=== PATIENT | female | born 1965 | race Caucasian/White ===

== ENCOUNTER 2016-05-16 11:49 | Emergency (ER) | payer BC ==
[2016-05-16] MEDS ORDERED: Ciprofloxacin 0.3% Ophth Soln 2.5 ML Bottle ONE (12:10)
[2016-05-16] MEDS ORDERED: Tetracaine 0.5% 2 ML Bottle ONE (12:10)
[2016-05-16 12:54] VITALS: BP 144/87
--- NOTE | 2016-05-16 15:40 | EDM.PDOC ---
ED HPI EYE COMPLAINT - General Stated Complaint: GREASE BURN TO THE EYE Time Seen by Provider: 05/16/16 11:50 Source: Reports: Patient - History of Present Illness INITIAL COMMENTS - FREE TEXT/NARRATIVE: This is a 50yo F arriving at the ER with a grease burn. Patient states the burn started when she was cooking [place] a droplet of grease hit her left eye. She states most of the grease hit her eye lid but feels some pain of the eye. She began to wash it immediately for a little while and then came to the ER. 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 ED EXAM GENERAL W FULL EYE - Physical Exam Exam: See Below Exam Limited By: No limitations General Appearance: alert, WD/WN, mild distress Eye Exam: bilateral eye: conjunctival injection, EOMI, PERRL Eyelids: bilateral: normal appearance Conjunctiva & Sclera: bilateral: injected Cornea Exam: bilateral: normal appearance Extraocular Movements: bilateral: intact Pupils: normal accommodation Pupillary Size: bilateral: 5 mm Pupillary Reaction: bilateral: brisk Anterior Chamber: bilateral: normal appearance Course - Vital Signs Last Recorded V/S: Last Vital Signs Temp 36.9 C 05/16/16 12:10 Pulse 93 05/16/16 12:10 Resp 20 05/16/16 12:10 BP 144/87 H 05/16/16 12:10 Pulse Ox 97 05/16/16 12:10 Departure - Departure Time of Disposition: 12:30 Disposition: Home, Self-Care 01 Condition: good Clinical Impression: Corneal burn Qualifiers: Encounter type: initial encounter Laterality: left Qualified Code(s): T26.12XA - Burn of cornea and conjunctival sac, left eye, initial encounter Referrals: Armando Haskins MD [Primary Care Provider] - - Problem List Review Problem List Initiated/Reviewed/Updated: Yes - Assessment/Plan Plan: Patient counseled on close monitoring for visual symptoms/changes or increased pain. Patient agrees with close monitoring and close f/u. Placed on Cipro eye drops and counseled on f/u again. Patient will f/u if symptoms persist, or worsen.
== END 2016-05-16 12:20 | disposition home or self-care (01) ==
LOC: LB.ED 11:49
DX: T26.12XA Burn of cornea and conjunctival sac, left eye, initial encounter (principal); X10.2XXA Contact with fats and cooking oils, initial encounter
CPT/HCPCS: 99283; A9270

== ENCOUNTER 2016-12-04 12:10 | Emergency (ER) | payer BC ==
[2016-12-04] MEDS ORDERED: Cyclobenzaprine 10 MG Tab ONE (12:30)
[2016-12-04 13:04] VITALS: BP 136/85
--- NOTE | 2016-12-04 14:21 | ER ---
HPI: A 51-year-old lady here with complaints of mid back pain on the left side. This has been bothering her for about 3 days. She denies any falls or injuries. She has not been sick. She is not running a fever. She denies any problems with nausea, diarrhea, or constipation. She further denies any urinary symptoms such as dysuria or hematuria. 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 OBJECTIVE: GENERAL APPEARANCE: The patient is awake and alert, no obvious distress. VITAL SIGNS: Reviewed as listed. Examining the patient's back reveals skin is intact. Palpation of the lower left side just lateral to the paraspinal muscles involving the lower T-spine and upper L-spine reveals muscle tightness and tenderness. There is no obvious swelling or discoloration. There is some guarding with palpation of this area. ABDOMEN: Soft and nontender. SKIN: Otherwise warm and dry. DIAGNOSIS: Muscle strain involving the patient's midback area, left side. TREATMENT PLAN: Flexeril 10 mg t.i.d. If she becomes too drowsy during the day, she can take 5 mg during the day but make sure to take 10 mg at nighttime. She is also to use ibuprofen 800 mg t.i.d. with food. Activity should be as tolerated refraining from any heavy lifting for a few days, and she can apply heat 3-4 times a day p.r.n. Followup should be next week if her symptoms are not improving. The patient has no further questions. LISA/MODL /[id number]
== END 2016-12-04 12:50 | disposition home or self-care (01) ==
LOC: LB.ED 12:10
DX: S29.012A Strain of muscle and tendon of back wall of thorax, initial encounter (principal); X50.9XXA Other and unspecified overexertion or strenuous movements or postures, initial encounter; Y92.69 Other specified industrial and construction area as the place of occurrence of the external cause; Y99.0 Civilian activity done for income or pay
CPT/HCPCS: 99283; A9270

== ENCOUNTER 2017-07-17 09:20 | Emergency (ER) | payer BC ==
[2017-07-17] MEDS: Ketorolac 60 MG/2 ML SDV IM ONE (10:00)
[2017-07-17] MEDS: Ketorolac 60 MG/2 ML SDV ONE (13:51)
--- NOTE | 2017-07-18 20:00 | EDM.PDOC ---
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 States she was walking down [place]. Her shift was over and her back just gave out on her and spasm of pain. Pt is lying on back and was able to turn onto right side, while on stretcher. She did have pain to her left side and left back. States pain was so severe, she couldn't walk. rates pain 09/26. States she has an appointment today in [place] with Dr Ryan, orthopedics. Pt states no fall, no injury and no lifting on her last shift of work. Onset: Today Onset Date: 07/17/17 Onset Time: 09:00 Location: Reports: Back Severity: Severe Improves with: Reports: Rest Worsens with: Reports: Other (Pain with palpation to left middle back and side, no pain to vertebrae with palpation), Movement Context: Reports: Activity. Denies: Lifting, Trauma Associated Symptoms: Reports: No Other Symptoms - Related Data Allergies Allergy/AdvReac Type Severity Reaction Status Date / Time No Known Allergies Allergy Verified 12/04/16 12:24 Past Medical History Other Musculoskeletal History: right knee pain, BACK PAIN STARTED 3 DAYS AGO LEFT LOWER BACK - Past Surgical History Musculoskeletal Surgical History: Reports: Arthroscopic Knee Social & Family History - Tobacco Use Smoking Status *Q: Never Smoker Second Hand Smoke Exposure: Yes - Caffeine Use Caffeine Use: Reports: None - Recreational Drug Use Recreational Drug Use: No ED ROS GENERAL - Review of Systems Review Of Systems: See Below Constitutional: Reports: No Symptoms HEENT: Reports: No Symptoms Respiratory: Reports: No Symptoms. Denies: Shortness of Breath Cardiovascular: Reports: No Symptoms. Denies: Chest Pain GI/Abdominal: Reports: No Symptoms : Reports: No Symptoms Musculoskeletal: Reports: Back Pain, Muscle Pain, Muscle Stiffness Skin: Reports: No Symptoms Neurological: Reports: No Symptoms, Numbness. Denies: Tingling Psychiatric: Reports: No Symptoms Hematologic/Lymphatic: Reports: No Symptoms ED EXAM,LOWER BACK PAIN/INJURY - Physical Exam Exam: See Below Exam Limited By: No Limitations General Appearance: Alert, No Apparent Distress Ears: Hearing Grossly Normal Nose: Normal Inspection Throat/Mouth: Normal Voice, No Airway Compromise Head: Atraumatic, Normocephalic Neck: Supple, Non-Tender, Full Range of Motion Respiratory/Chest: No Respiratory Distress, Lungs Clear Cardiovascular: Regular Rate, Rhythm GI/Abdominal: Soft, Non-Tender (Female) Exam: Deferred Rectal (Female) Exam: Deferred Back Exam: Decreased Range of Motion, Muscle Spasm. No: Vertebral Tenderness Extremities: Limited Range of Motion, Other (knee pain) Neurological: Alert, Normal Mood/Affect, Oriented x 3, Other (Pt ambulates with cane.) Psychiatric: Normal Affect, Normal Mood Skin Exam: Warm, Dry, Normal Color Course - Orders/Labs/Meds Meds: Medications Discontinued Medications Generic Name Dose Route Start Last Admin Trade Name Freq PRN Reason Stop Dose Admin Ketorolac Tromethamine Confirm 07/17/17 10:01 07/17/17 13:51 Toradol Administered 07/17/17 10:02 Not Given Dose 60 mg .ROUTE .STK-MED ONE Ketorolac Tromethamine 60 mg 07/17/17 10:00 07/17/17 10:00 Toradol IM 07/17/17 10:01 60 mg ONETIME ONE Administration Departure - Departure Time of Disposition: 10:20 Disposition: Home, Self-Care 01 Condition: Fair (difficulty with ambulation and muscle spasm to back) Clinical Impression: Muscle spasm - Discharge Information Referrals: PCP,None [Primary Care Provider] - Forms: ED Department Discharge Additional Instructions: Take home Robaxin 500mg TID. Ice packs to area as needed for pain. - Problem List & Annotations (1) Back pain SNOMED Code(s): 690185371 Code(s): M54.9 - DORSALGIA, UNSPECIFIED Status: Acute Qualifiers: Back pain location: thoracic back pain Chronicity: acute Back pain laterality: left Qualified Code(s): M54.6 - Pain in thoracic spine (2) Muscle spasm SNOMED Code(s): 76985687 Code(s): M62.838 - OTHER MUSCLE SPASM Status: Acute - Problem List Review Problem List Initiated/Reviewed/Updated: Yes - Assessment/Plan Plan: Recommend Robaxin 500 mg PO tid for relief of muscle spasm. May use Ice to back for 20 minutes to area 5x/day as tolerated. Will give Toradol 60 mg IM now in ER. Pt should continue with scheduled appointment today with orthopedics at [facility] [place] [facility]. Pt does have a vibratory pile driver to take her to [place]. Recommend rest and position for comfort. Continue with ambulation as tolerated. Pt may be discharged home to self care. Recommend no mor NSAID for 8 hr after Toradol in ER. Pt states understanding of instructions.
== END 2017-07-17 10:20 | disposition home or self-care (01) ==
LOC: LB.ED 09:20
DX: M62.830 Muscle spasm of back (principal); Z77.22 Contact with and (suspected) exposure to environmental tobacco smoke (acute) (chronic)
CPT/HCPCS: 96372; 99283; J1885

== ENCOUNTER 2018-09-22 14:35 | Emergency (ER) | payer BC ==
[2018-09-22 16:01] VITALS: BP 127/65; PULSE 80
--- NOTE | 2018-09-22 20:16 | ER ---
REASON FOR EMERGENCY ROOM VISIT: Right lower leg pain. HISTORY: This 53-year-old woman underwent a right total knee reconstruction 5 days ago in [place]. She did have prior knee surgery in 2008 and by her description, her recent surgery was fairly extensive and complicated, although I do not have records of that procedure. She has been ambulating a bit more lately with the use of a walker and as a consequence she has noted gradually increasing pain in her left knee and calf area because of this. She called the nurse and was told that she could check at home "Homans sign" by herself. She did this and experienced pain. Therefore, the nurse asked her to come into the emergency room to be evaluated. PAST MEDICAL HISTORY: Reviewed. MEDICATIONS: See EMR. REVIEW OF SYSTEMS: Unremarkable. PHYSICAL EXAMINATION: Her right knee from the lower thigh to the mid calf was wrapped in an Damian wrap. This was removed. She did have a small, clean-looking dressing over her incision across the knee, and I did not disturb this. She does have some edema and a considerable amount of ecchymosis that goes down to the mid calf level and some puffiness. All this is tender and on palpation of this area it reproduces her discomfort. IMPRESSION: Incisional pain, postoperative. PLAN: I did discuss the possibility with her that a venous Doppler study could be done to exclude deep vein thrombosis. However, the findings and the history to me are completely consistent with postoperative discomfort. We did discuss the option of being on the safe side with venous Doppler and she decided she did not need to go through that now, but if her symptoms should worsen or she should experience increased swelling or increased pain, she would reconsider. She is scheduled to see her orthopedic surgeon in about 10 days' time and I recommended to her that she can call and see if she can get in to see him earlier next week to have this evaluated in light of her increased pain. She assures me she can do this and she will be contacting them. Certainly, if her symptoms worsen or she has any other concerns, she should get a hold of this again or return for another evaluation. IMPRESSION: Postoperative pain, status post right knee reconstruction. SONI/JS /[id number]
== END 2018-09-22 15:51 | disposition home or self-care (01) ==
LOC: LB.ED 14:35
DX: G89.18 Other acute postprocedural pain (principal); Z96.651 Presence of right artificial knee joint
CPT/HCPCS: 99283

== ENCOUNTER 2020-11-22 20:07 | Emergency (ER) | payer SELFPAY ==
[2020-11-22] MEDS ORDERED: Sodium Chloride 0.9% 10 ML Syringe FLUSH PRN (20:27)
[2020-11-22] MEDS ORDERED: LORazepam 1 MG Tab PO ONE (20:35)
--- NOTE | 2020-11-22 21:35 | EDM.PDOC ---
ED HPI GENERAL MEDICAL PROBLEM - General Chief Complaint: Chest Pain Stated Complaint: Chest tightness Time Seen by Provider: 11/22/20 20:10 Source of Information: Reports: Patient History Limitations: Reports: No Limitations - History of Present Illness INITIAL COMMENTS - FREE TEXT/NARRATIVE: This patient presents to the emergency department for evaluation of shortness of breath. She states she was walking to her car from visiting her mother in the care center when she developed shortness of breath and a tightness in her neck. When she entered the building she was quite frantic and anxious and stating she could not breathe. She denies any chest pain. She denied back pain. She denies any trauma or falls. Her shortness of breath easily resolved upon rest and when I saw her, she was breathing easily and comfortable. 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 Denies: Wheezing, Cough Cardiovascular: Reports: Dyspnea on Exertion. Denies: Chest Pain GI/Abdominal: Reports: No Symptoms Musculoskeletal: Reports: No Symptoms Skin: Reports: No Symptoms Neurological: Reports: No Symptoms ED EXAM, GENERAL - Physical Exam Exam: See Below Exam Limited By: No Limitations (Good luck with that all that is a trauma and they might be able to take him) General Appearance: Alert, No Apparent Distress, Obese (morbidly) Eye Exam: Bilateral Eye: Normal Inspection, PERRL Ears: Normal External Exam Nose: Normal Inspection Throat/Mouth: Normal Inspection Head: Atraumatic, Normocephalic Neck: Normal Inspection, Full Range of Motion Respiratory/Chest: Lungs Clear, Normal Breath Sounds, No Accessory Muscle Use. No: Respiratory Distress, Crackles, Rales, Accessory Muscle Use, Retractions, Prolonged Expiration Cardiovascular: Regular Rate, Rhythm Extremities: Pedal Edema (1+) Neurological: Alert, Oriented #1 Interpretation EKG Date: 11/22/20 Rhythm: NSR (No acute changes) Comparison: NA - No Prior EKG Course - Orders/Labs/Meds Orders: Active Orders 24 hr Category Date Time Status Sodium Chloride 0.9% [Saline Flush] Med 11/22/20 20:27 Active 10 ml FLUSH ASDIRECTED PRN Saline Lock Insert [OM.PC] Stat Oth 11/22/20 20:27 Ordered EKG 12 Lead [EK] Stat Ther 11/22/20 20:27 Ordered Medication Orders Sodium Chloride (Sodium Chloride 0.9% 10 Ml Syringe) 10 ml FLUSH ASDIRECTED PRN PRN Reason: Keep Vein Open Labs: Laboratory Tests 11/22/20 11/22/20 Range/Units 20:27 20:30 WBC 6.6 (4.0-11.0) K/uL RBC 4.49 (3.80-5.80) M/uL Hgb 12.8 (11.5-16.5) g/dL Hct 38.0 (37.0-47.0) % MCV 85 (76-96) fL MCH 28.5 (27.0-32.0) pg MCHC 33.7 (31.0-35.0) g/dL RDW 13.7 (11.0-16.0) % Plt Count 171 D (150-500) K/uL MPV 9.2 (6.0-10.0) fL Neut % (Auto) 68.8 (45.0-70.0) % Lymph % (Auto) 21.9 (20.0-40.0) % Hardy % (Auto) 7.8 (3.0-10.0) % Eos % (Auto) 0.9 L (1.0-5.0) % Baso % (Auto) 0.6 H (0.0-0.5) % Neut # (Auto) 4.52 (2.00-7.50) K/uL Lymph # (Auto) 1.44 L (1.50-4.00) K/uL Hardy # (Auto) 0.51 (0.20-0.80) K/uL Eos # (Auto) 0.06 (0.04-0.40) K/uL Baso # (Auto) 0.04 (0.02-0.10) K/uL Sodium 139 (136-145) mmol/L Potassium 3.8 (3.5-5.1) mmol/L Chloride 105 (98-107) mmol/L Carbon Dioxide 27.8 (21.0-32.0) mmol/L Anion Gap 10.0 (5.0-15.0) mmol/L BUN 9 (8-26) mg/dL Creatinine 0.90 D (0.55-1.02) mg/dL Est Cr Clr Drug Dosing TNP Estimated GFR (MDRD) > 60 (>60) MLS/MIN BUN/Creatinine Ratio 10.0 (6-25) Glucose 181 H D (74-100) mg/dL Calcium 9.0 (8.5-10.1) mg/dL Troponin I < 0.017 (0.000-0.060) ng/mL Meds: Medications Generic Name Dose Route Start Last Admin Trade Name Freq PRN Reason Stop Dose Admin Sodium Chloride 10 ml 11/22/20 20:27 Sodium Chloride 0.9% 10 Ml Syringe FLUSH ASDIRECTED PRN Keep Vein Open Discontinued Medications Generic Name Dose Route Start Last Admin Trade Name Freq PRN Reason Stop Dose Admin Lorazepam 1 mg 11/22/20 20:35 11/22/20 20:47 Lorazepam 1 Mg Tab PO 11/22/20 20:36 1 mg ONETIME ONE Administration - Re-Assessments/Exams Free Text/Narrative Re-Assessment/Exam: 11/22/20 21:43 This patient presents to the ER with shortness of breath after walking across the parking lot. The work-up here in the ED is negative. She had an EKG and labs that were within normal limits for her age. The differential diagnosis for this is broad and does include life-threatening etiology such as acute coronary syndrome, myocardial infarction, pulmonary embolism, aortic dissection, pneumonia, pneumothorax, pericarditis, pleurisy, esophageal spasms. No serious etiology for the difficulty breathing was identified tonight. She did get significant relief from Ativan. The patient is also quite obese. Her shortness of breath could be related to both anxiety and obesity. She was much more comfortable on reassessment, her questions were answered; she was instructed to follow-up with her primary care provider as needed. Departure - Departure Time of Disposition: 21:45 Disposition: DC/Tfer to Hospice - Home 48 Condition: Fair Clinical Impression: SOB (shortness of breath) on exertion - Discharge Information *PRESCRIPTION DRUG MONITORING PROGRAM REVIEWED*: Not Applicable *COPY OF PRESCRIPTION DRUG MONITORING REPORT IN PATIENT MAXIMUS: Not Applicable Instructions: Shortness of Breath, Adult, [id number] Forms: ED Department Discharge - My Orders Last 24 Hours: My Active Orders 11/22/20 20:27 Sodium Chloride 0.9% [Saline Flush] 10 ml FLUSH ASDIRECTED PRN Saline Lock Insert [OM.PC] Stat EKG 12 Lead [EK] Stat - Assessment/Plan Last 24 Hours: My Active Orders 11/22/20 20:27 Sodium Chloride 0.9% [Saline Flush] 10 ml FLUSH ASDIRECTED PRN Saline Lock Insert [OM.PC] Stat EKG 12 Lead [EK] Stat
== END 2020-11-22 21:53 | disposition home or self-care (01) ==
LOC: LB.ED 20:07
DX: R06.02 Shortness of breath (principal); J44.9 Chronic obstructive pulmonary disease, unspecified
CPT/HCPCS: 36415; 80048; 84484; 85025; 93005; 99285-25; A9270-GY

== ENCOUNTER 2022-07-09 12:35 | Emergency (ER) | payer SELFPAY ==
[2022-07-09 12:51] VITALS: BP 122/86; PULSE 90
[2022-07-09 13:32] LABS: ESTIMATED GFR 76 mL/min (>60)
== END 2022-07-09 13:50 | disposition home or self-care (01) ==
LOC: SUPCPDRO 12:35 → LB.ED 12:35
DX: T68.XXXA Hypothermia, initial encounter (principal)
CPT/HCPCS: 36415; 80053; 83605; 85025; 99283; 99284; A0425; A0429